=== PATIENT | female | born 2000 | race Caucasian/White ===

== ENCOUNTER 2023-08-28 19:50 | Emergency (ER) | payer OTHER, SELFPAY ==
[2023-08-28 19:54] VITALS: BP 137/86
[2023-08-28 20:08] LABS: % Basophils 0.8 % (0-2); % Eosinophils 2.9 % (0-6); % Immature Granulocytes 0.3 % (0-0.5); % Lymphocytes 39.9 % (20.5-51.1); % Monocytes 5.5 % (1.7-9.3); % Neutrophils 50.6 % (42.2-75.2); Absolute Basophils 0.1 10^3/uL (0-0.2); Absolute Eosinophils 0.3 10^3/uL (0-0.7); Absolute Lymphocytes 4.6 10^3/uL (1.2-3.4); Absolute Monocytes 0.6 10^3/uL (0.1-0.6); Absolute Neutrophils 5.8 10^3/uL (1.4-6.5); Hematocrit 38.3 % (37.0-47.0); Hemoglobin 13.7 g/dL (12.0-16.0); Mean Corp Hgb Conc. 35.8 g/dL (33.0-37.0); Mean Corpuscular Hgb 30.2 pg (27.0-31.0); Mean Corpuscular Volume 84.4 fL (81.0-99.0); Nucleated Red Blood Cells % 0 %; Platelet Count 283 10^3/uL (130-400); Red Blood Cell Count 4.54 10^6/uL (4.20-5.40); White Blood Cell Count 11.4 10^3/uL (4.8-10.8)
[2023-08-28 20:25] LABS: HCG, Serum Qualitative Screen Negative
[2023-08-28 20:29] LABS: ALT (SGPT) 23 U/L (0-35); AST (SGOT) 23 U/L (14-36); Albumin 4.4 g/dl (3.5-5.0); Alkaline Phosphatase 96 U/L (38-126); Blood Urea Nitrogen 14 mg/dl (7-17); Calcium 9.5 mg/dl (8.4-10.2); Carbon Dioxide 26 mmol/L (22-30); Chloride 107 mmol/L (98-107); Glucose 91 mg/dl (70-99); Potassium 4.5 mmol/L (3.5-5.1); Sodium 142 mmol/L (135-145); Total Bilirubin 0.4 mg/dl (0.2-1.3); Total Protein 7.3 g/dl (6.3-8.2); eGFR > 60.00
[2023-08-28 20:31] LABS: Troponin I < 0.012 ng/ml
[2023-08-28 21:17] VITALS: BP 103/70
--- NOTE | 2023-08-28 21:17 | ED.GENMED ---
History of Present Illness
General
Chief Complaint: Cardiac Symptoms
Source: patient
Time Seen by Provider: 08/28/23 21:10
History of Present Illness
History of Present Illness:
22-year-old female presents to the emergency room because her Apple Watch was telling her she had a high heart rate in the 120s 130s. Patient is also been feeling episodes of dizziness. She denies any actual chest pain but did feel a bit short of
breath earlier. Denies any recent travel. She denies taking any [id number] medications. No significant medical history.
Past History
Social History
Tobacco: Non-smoker
Alcohol: None
Drug: None
Phy Exam
Physical Exam
Physical Exam:
General: Awake, Alert, Oriented X3. No acute distress, high BMI
Vitals: unremarkable
Head: Atraumatic
Eyes: Pupils equal, EOMI
Throat: Airway intact, no exudates
Neck: Trachea midline
Lungs: Clear and equal b/l
Heart: Regular rate, no murmurs
Abd: Soft, Nontender, No pulsatile mass
Neuro: Nonfocal
Skin: Warm, dry, no rash
Extremities: pulses equal b/l, no edema
Course
Orders/Labs/Results
Orders:
Orders
08/28/23 19:53
Electrocardiogram (*1) Urgent
Reason for Study: Chest Pain
EKG- Treatment ONCE
Test Result ONCE
CXR2 [CR Chest - 2 Views ] Urgent
Comment:
Reason For Exam: tach
08/28/23 20:03
Complete Blood Count/With Diff Urgent
Comprehensive Metabolic Panel Urgent
HCG, Serum Qualitative Screen Urgent
Comment: Notify provider if positive test present
Troponin I Urgent
08/28/23 21:16
Cardiac Monitoring- Treatment ONCE
08/28/23 21:25
D-Dimer Urgent
Abnormal Lab Results
08/28/23
20:03
WBC 11.4 H 10^3/uL
(4.8-10.8)
Absolute Lymphs (auto) 4.6 H 10^3/uL
(1.2-3.4)
08/28/23 20:03
08/28/23 20:03
Vital Signs
Initial and Last Documented VS:
Initial Vital Signs
Temp Pulse Resp BP Pulse Ox
98.4 F 96 16 137/86 97
08/28/23 19:54 08/28/23 19:54 08/28/23 19:54 08/28/23 19:54 08/28/23 19:54
Last Documented Vital Signs
Temp Pulse Resp BP Pulse Ox
98 F 89 18 95/62 98
08/28/23 21:20 08/28/23 22:35 08/28/23 22:35 08/28/23 22:35 08/28/23 22:35
MDM/Problems Addressed
Differential Diagnosis Includes:
PSVT, dehydration, anemia, anxiety
MDM/Problems Addressed:
Workup here is unremarkable. Labs are normal, EKG shows no acute ischemic changes. Her troponin is normal, D-dimer is normal. Chest x-ray shows no acute abnormality. Patient stable for discharge and outpatient follow-up. Perhaps a Holter
monitor would be in order as an outpatient.
*Radiology
Radiology exam reviewed: radiology read reviewed
*Pulse Oximetry
Patient hypoxic: no
*EKG
Interpreted by ED Provider?: Yes
Interpretation: normal
Heart Rate: 89
Rate: normal
Rhythm: sinus
[place]: normal axis
Interval: normal interval
QRS Pattern: normal QRS
Ischemia: no ischemia
*Care Program Director Interpretation
Rate: normal
Interpretation: normal
Rhythm: sinus
*Critical Care Note
Total Time (30-74mins, 75-104mins- exclusive of procedures): Not Applicable
ED Attending Note
-
Portions of this chart may have been created with voice recognition software.� Occasional wrong word or��sound alike� substitutions may have occurred due to the inherent limitations of voice recognition software.
Discharge Plan
Departure
Patient Disposition: Home (Routine Discharge)
Date of Disposition: 08/28/23
Time of Disposition: 22:31
Patient with high blood pressure during this ER visit?: No
Condition: Good
Discharge Problem:
Dizziness, Palpitations
Instructions: Palpitations ED
Prescriptions:
No Action
cetirizine 10 MG tablet
10 mg PO DAILY
sertraline 100 MG tablet
100 mg PO DAILY
cholecalciferol (vitamin D3) [Vitamin D3] 1,000 UNIT capsule
1,000 unit PO DAILY
mu-ykz-YP-Pe-Co-oosbyzx-lutein 1 EACH tablet
1 tab PO DAILY
Referrals:
Emelia Huntley CRNP [Family Provider] -
Activity Restrictions/Additional Instructions:
Please follow up with your doctor. They may consider a holter monitor to evaluate your palpitations. Your heart rate has been normal here in the ER.
Interventions
Interventions:
*Risk Screen - Suicide Last Done: 08/28/23 19:54
*General Assessment Last Done: 08/28/23 21:16
*Neglect/Abuse Screening Last Done: 08/28/23 19:54
ED- Fall Risk Assessment Last Done: 08/28/23 19:54
*ED COVID-19 Vaccine History Last Done: 08/28/23 22:36
*Nursing Disposition Last Done: 08/28/23 22:36
ED- Pulmonary Assessment Last Done: 08/28/23 21:14
ED- Cardiac Assessment Last Done: 08/28/23 21:14
Discharge Date and Time
Discharge Date/Time: 08/28/23 22:43
Print Language: CYMRO
[2023-08-28 21:20] VITALS: BP 103/70
[2023-08-28 22:00] VITALS: BP 92/69
[2023-08-28 22:15] LABS: D-Dimer 0.32 ug/mlFEU (0.00-0.50)
[2023-08-28 22:35] VITALS: BP 95/62
== END 2023-08-28 22:43 | disposition home or self-care (01) ==
LOC: EMR 19:50
PROVIDERS: Emergency Medicine; EMERGENCY PHYSICIAN Emergency Medicine; FAMILY PHYSICIAN Nurse Practitioner Family
DX: R00.2 Palpitations (principal); R42 Dizziness and giddiness; R06.02 Shortness of breath
CPT/HCPCS: 99283; 71046; 80053; 84484; 84703; 85025; 85379; 93005